=== PATIENT | female | born 1940 | race Caucasian/White ===

== ENCOUNTER 2020-07-22 16:41 | Emergency (ER) | payer MEDICARE, OTHER, SELFPAY ==
--- NOTE | ~2020-07-22 | CT_ITS ---
EXAMINATION: CT ABDOMEN AND PELVIS WITHOUT CONTRAST CLINICAL INFORMATION: Right-sided flank pain COMPARISON: None TECHNIQUE: Multidetector volumetric imaging was performed from the superior aspect of the liver through the pubic symphysis. Sagittal and coronal reformatted images were obtained on the technologist's workstation. This CT examination was performed using dose optimization techniques as appropriate, variously including the following: *Automated exposure control *Adjustment of mA and/or kV according to patient size (this includes techniques or standardized protocols for targeted exams where dose is matched to indication/reason for exam; i.e. extremities or head) *Use of iterative reconstruction technique DLP: 501 mGy-cm FINDINGS: LUNG BASES: The visualized lung bases are unremarkable. Large volume of coronary artery calcifications. There are vascular wall calcifications of thoracic aorta. There is a small hiatal hernia. LIVER, GALLBLADDER, AND BILIARY TREE: The liver is normal in size, shape, and attenuation. No focal hepatic lesion or biliary ductal dilatation is present. The gallbladder is unremarkable with no evidence of radiopaque gallstones, gallbladder wall thickening, or obvious pericholecystic inflammatory changes. PANCREAS: Unremarkable. SPLEEN: Unremarkable. ADRENAL GLANDS: There is a left adrenal mass. This measures 3.8 cm AP. This has a density measurement of 16 Hounsfield units. There is a 1 cm area of macroscopic fat measuring -35 Hounsfield units. This is consistent with a myolipoma. The right adrenal gland is normal. KIDNEYS AND URETERS: There are multiple bilateral renal cysts. Largest is in the upper pole left kidney measuring 6.5 cm. There are calcifications in the renal maribel of both kidneys that are likely vascular. There is a 3 mm nonobstructive stone at the lower pole of the right kidney. There is mild hydronephrosis of the right kidney. There is an obstructing stone in the distal right ureter measuring 3 mm. Axial image 622/770 series 4 No hydronephrosis or stone in the left kidney. BLADDER: Unremarkable. GASTROINTESTINAL TRACT: There are numerous diverticula of the sigmoid colon and descending colon. There is no diverticulitis. There is no bowel wall thickening /edema. There is no bowel obstruction. There is a moderate volume of stool in the colon. The appendix is normal . The small bowel loops are unremarkable. The stomach is normal. There is small hiatal hernia. ABDOMINAL WALL: No significant hernia is appreciated. LYMPH NODES: Normal. VASCULAR: Extensive vascular calcifications of the abdomen and the pelvis. There is no aneurysm of aorta. PELVIC VISCERA: Uterus is absent. There is no pelvic abnormality. OSSEOUS STRUCTURES: Degenerative spondylosis of the spine. No acute osseous abnormality. CT/CT abdomen pelvis wo con IMPRESSION: 1. Mild hydronephrosis of the right kidney due to an obstructing distal right ureteral stone measuring 3 mm proximal to the ureterovesical junction. 2. Nonobstructive 3 mm stone lower pole right kidney. 3. 3.8 cm left adrenal lesion which contains a 1 cm area of macroscopic fat. This is consistent with a myelolipoma. 4. Diverticulosis of the colon. No acute change of the bowel.
[2020-07-22 17:25] VITALS: BP 134/50; PULSE 90; RESP 18; TEMP 36.8; O2SAT 98; BMI 26.5
[2020-07-22 18:56] LABS: MANUAL DIFF FLAG NO
[2020-07-22 18:59] LABS: Basophils Percent Auto 0.3 % (0-2); Eosinophils Absolute Auto 0.1 X10*3/uL (0.0-0.4); Eosinophils Percent Auto 0.5 % (0-4); Hematocrit 37.5 % (37-47); Hemoglobin 12.4 g/dl (12.0-16.0); Imm Gran Abs Auto 0.06 X10*3/uL (0.00-0.03); Imm Gran Pct Auto 0.5 % (0.0-0.4); Lymphocytes Percent Auto 8.4 % (20-40); Mean Corpuscular HGB Conc 33.1 g/dl (31.0-35.0); Mean Corpuscular Hemoglobin 30.7 pg (27.0-33.0); Mean Corpuscular Volume 92.8 fL (80-98); Mean Platelet Volume 11.1 fL (9.4-12.3); Monocytes Absolute Auto 0.6 X10*3/uL (0.1-1.2); Monocytes Percent Auto 5.1 % (2-11); Neutrophils Absolute Auto 10.1 X10*3/uL (2.0-8.3); Neutrophils Percent Auto 85.2 % (45-73); Platelet Count 272 X10*3/uL (160-400); Red Blood Count 4.04 X10*6/uL (4.20-5.50); Red Cell Distribution Width 13.1 % (11.0-16.0); White Blood Count 11.9 X10*3/uL (4.8-10.8)
[2020-07-22 19:02] LABS: Glucose Urine UA NEG (NEG); Leukocyte Esterase Urine NEG (NEG); Nitrite Urine NEG (NEG); PH 5.5 (5.0-8.0); Specific Gravity - Urine 1.025 (1.005-1.025); Urine Blood 1+ (NEG); Urine Ketones NEG (NEG); Urine Protein NEG (NEG-TRACE)
[2020-07-22 19:04] LABS: Appearance Urine CLEAR; Color Urine YELLOW
[2020-07-22 19:18] LABS: Bacteria Urine 1+ /LPF; Squamous Epithelial Cell Urine 1+ /LPF
[2020-07-22 19:20] LABS: Alanine Aminotransferase 12 U/L (0-31); Albumin Level 4.4 g/dL (3.5-5.0); Alkaline Phosphatase 84 U/L (39-117); Anion Gap 15 (12-20); Aspartate Amino Transferase 14 U/L (5-31); Bilirubin Direct 0.2 mg/dL (0.0-0.5); Bilirubin Total 0.6 mg/dL (0.0-1.0); Blood Urea Nitrogen 29 mg/dL (9-16); Carbon Dioxide 25 mmol/L (22-29); Chloride 103 mmol/L (96-108); Creatinine Clr Calc Pharmacy 23.3; Estimated Glomerular Filt Rate 29; Glucose Random 157 mg/dL (60-115); Lipase 15 U/L (8-78); Potassium 4.9 mmol/L (3.3-5.1); Sodium 138 mmol/L (135-145); Total Protein 6.5 g/dL (6.5-8.0)
[2020-07-22 20:59] LABS: Glucose, Whole Blood 151 mg/dL (60-115)
--- NOTE | 2020-07-22 21:02 | ED_ITS ---
HPI - Abdominal Pain General Chief Complaint: Abdominal Pain Stated Complaint: right sided pain Time Seen by Provider: 07/22/20 21:02 Source: patient Mode of arrival: ambulatory Limitations: no limitations History of Present Illness HPI narrative: abrupt onset R flank pain pos nausea - hx of kidney stones, had Pfizer vaccine today this AM MD elicited complaint: flank pain Pertinent past history: kidney stones Onset (ago): hour(s) (started at 330pm today) Pain Consistency: constant Location: R flank Severity: severe Quality: stabbing Radiation: none Migration to: no migration Exacerbating factors: movement Relieving factors: nothing Context: history of similar episodes Associated symptoms: nausea Related Data Previous Rx's Medication Instructions Recorded ondansetron 4 mg PO Q8H PRN #20 tab 07/22/20 oxycodone 5 mg PO Q6H PRN #14 tab 07/22/20 prednisone 20 mg PO DAILY 3 Days #3 tab 07/22/20 sennosides [senna] 8.6 mg PO BEDTIME PRN #30 cap 07/22/20 tamsulosin 0.4 mg PO DAILY #5 cap 07/22/20 Allergies Allergy/AdvReac Type Severity Reaction Status Date / Time No Known Allergies Allergy Verified 07/22/20 17:24 Review of Systems Review of Systems Constitutional : No Weight loss, No Fever, No Chills ENT/Mouth : No sore throat, No Rhinorrhea Eyes: No Swelling, No Redness Cardiovascular : No Chest Pain, No SOB, NoEdema Respiratory : No Cough, No Sputum, No Wheezing Gastrointestinal : Positive Nausea, no Vomiting, no Diarrhea, positive abdominal Pain, No Hematochezia, No Melena Genitourinary : No Dysuria, No Urinary Frequency, No Hematuria, No Urgency Musculoskeletal : No joint pain, No Myalgias, No Joint Swelling, pos back pain Skin : No Skin Lesions, No rash Neuro : No Weakness, No Numbness, No Dizziness, No Headache Psych : No Anxiety/Panic, No Depression Heme/Lymph: No Bruising, No Lymphadenopathy Endocrine : No Polyuria, No Polydipsia All other systems reviewed and are negative. Physical Exam Vital Signs: Vital Signs: Last Vital Signs Temp 99.5 F 07/22/20 21:25 Pulse 78 07/22/20 21:25 Resp 20 07/22/20 21:25 BP 165/70 H 07/22/20 21:25 Pulse Ox 98 07/22/20 21:25 Body Mass Index 26.5 Appearance: Alert. Oriented X3. No acute distress. Eyes: Pupils equal, round and reactive to light. ENT: Pharynx normal. Neck: Normal inspection. Neck supple. CVS: Normal heart rate and rhythm. Pulses normal. Respiratory: No respiratory distress. Breath sounds normal. Abdomen: Soft and nontender. Back: moderate CVA ttp Skin: Skin warm and dry. Normal skin color. Normal skin turgor. Extremities: No lower extremity edema. No calf ttp Neuro: Oriented X 3. No motor deficit. No sensory deficit. Course Course Course Narrative: started on flomax and oral steroids at this time, will continue to observe baseline Cr from 05/25 1.4 pain improved will trial oral antibiotics MDM - Abdominal Pain MDM Narrative Medical decision making narrative: 80 yo female with abrupt onset R flank pain hx of renal colic, c/o nausea as well at this time will need labs, UA, CT scan for renal colic, IV morphine for pain, dispo per results and findings. Lab Data Result diagrams: 07/22/20 18:40 07/22/20 18:40 Labs: Lab Results 07/22/20 07/22/20 07/22/20 Range/Units 18:40 18:40 18:40 WBC 11.9 H (4.8-10.8) X10*3/uL RBC 4.04 L (4.20-5.50) X10*6/uL Hgb 12.4 (12.0-16.0) g/dl Hct 37.5 (37-47) % MCV 92.8 (80-98) fL MCH 30.7 (27.0-33.0) pg MCHC 33.1 (31.0-35.0) g/dl RDW 13.1 (11.0-16.0) % Plt Count 272 (160-400) X10*3/uL MPV 11.1 (9.4-12.3) fL Immature Gran % (Auto) 0.5 H (0.0-0.4) % Neut % (Auto) 85.2 H (45-73) % Lymph % (Auto) 8.4 L (20-40) % [place] % (Auto) 5.1 (2-11) % Eos % (Auto) 0.5 (0-4) % Baso % (Auto) 0.3 (0-2) % Lymph # (Auto) 1.0 L (1.2-4.9) X10*3/uL [place] # (Auto) 0.6 (0.1-1.2) X10*3/uL Eos # (Auto) 0.1 (0.0-0.4) X10*3/uL Baso # (Auto) 0.0 (0.0-0.2) X10*3/uL Abs Immat Gran (auto) 0.06 H (0.00-0.03) X10*3/uL Absolute Neuts (auto) 10.1 H (2.0-8.3) X10*3/uL Absolute Nucleated RBC 0.000 (0.0-0.012) X10*3/uL Nucleated RBC % (auto) 0.0 (0.0-0.2) /100WBC Sodium 138 (135-145) mmol/L Potassium 4.9 (3.3-5.1) mmol/L Chloride 103 (96-108) mmol/L Carbon Dioxide 25 (22-29) mmol/L Anion Gap 15 (12-20) BUN 29 H (9-16) mg/dL Creatinine 1.68 H (0.5-1.4) mg/dL Estim Creat Clear Calc 23.3 Estimated GFR 29 POC Glucose (60-115) mg/dL Random Glucose 157 H (60-115) mg/dL Calcium 10.0 (8.4-10.2) mg/dL Total Bilirubin 0.6 (0.0-1.0) mg/dL Direct Bilirubin 0.2 (0.0-0.5) mg/dL AST 14 (5-31) U/L ALT 12 (0-31) U/L Alkaline Phosphatase 84 (39-117) U/L Total Protein 6.5 (6.5-8.0) g/dL Albumin 4.4 (3.5-5.0) g/dL Lipase 15 (8-78) U/L Urine Color YELLOW Urine Appearance CLEAR Urine pH 5.5 (5.0-8.0) Ur Specific [place] 1.025 (1.005-1.025) Urine Protein NEG (NEG-TRACE) MG/DL Urine Glucose (UA) NEG (NEG) MG/DL Urine Ketones NEG (NEG) MG/DL Urine Blood 1+ H (NEG) Urine Nitrite NEG (NEG) Ur Leukocyte Esterase NEG (NEG) Urine RBC 1-4 (0) /HPF Urine WBC 1-4 (0-4) /HPF Ur Squamous Epith Cells 1+ /LPF Urine Bacteria 1+ /LPF 07/22/20 Range/Units 20:48 WBC (4.8-10.8) X10*3/uL RBC (4.20-5.50) X10*6/uL Hgb (12.0-16.0) g/dl Hct (37-47) % MCV (80-98) fL MCH (27.0-33.0) pg MCHC (31.0-35.0) g/dl RDW (11.0-16.0) % Plt Count (160-400) X10*3/uL MPV (9.4-12.3) fL Immature Gran % (Auto) (0.0-0.4) % Neut % (Auto) (45-73) % Lymph % (Auto) (20-40) % [place] % (Auto) (2-11) % Eos % (Auto) (0-4) % Baso % (Auto) (0-2) % Lymph # (Auto) (1.2-4.9) X10*3/uL [place] # (Auto) (0.1-1.2) X10*3/uL Eos # (Auto) (0.0-0.4) X10*3/uL Baso # (Auto) (0.0-0.2) X10*3/uL Abs Immat Gran (auto) (0.00-0.03) X10*3/uL Absolute Neuts (auto) (2.0-8.3) X10*3/uL Absolute Nucleated RBC (0.0-0.012) X10*3/uL Nucleated RBC % (auto) (0.0-0.2) /100WBC Sodium (135-145) mmol/L Potassium (3.3-5.1) mmol/L Chloride (96-108) mmol/L Carbon Dioxide (22-29) mmol/L Anion Gap (12-20) BUN (9-16) mg/dL Creatinine (0.5-1.4) mg/dL Estim Creat Clear Calc Estimated GFR POC Glucose 151 H (60-115) mg/dL Random Glucose (60-115) mg/dL Calcium (8.4-10.2) mg/dL Total Bilirubin (0.0-1.0) mg/dL Direct Bilirubin (0.0-0.5) mg/dL AST (5-31) U/L ALT (0-31) U/L Alkaline Phosphatase (39-117) U/L Total Protein (6.5-8.0) g/dL Albumin (3.5-5.0) g/dL Lipase (8-78) U/L Urine Color Urine Appearance Urine pH (5.0-8.0) Ur Specific [place] (1.005-1.025) Urine Protein (NEG-TRACE) MG/DL Urine Glucose (UA) (NEG) MG/DL Urine Ketones (NEG) MG/DL Urine Blood (NEG) Urine Nitrite (NEG) Ur Leukocyte Esterase (NEG) Urine RBC (0) /HPF Urine WBC (0-4) /HPF Ur Squamous Epith Cells /LPF Urine Bacteria /LPF Discharge Plan Discharge Clinical Impression: Calculus of kidney Patient Disposition: Home, Self-Care Instructions: Renal Colic (ED) Additional Instructions: return to ED for any worsening symptoms or concerns YOU NEED TO HAVE YOUR KIDNEY FUNCTION RECHECKED IN 2 DAYS, IF NO IMPROVEMENT IN PAIN PLEASE CONTACT UROLOGIST. STOP TAKING NAPROXEN 1. Mild hydronephrosis of the right kidney due to an obstructing distal right ureteral stone measuring 3 mm proximal to the ureterovesical junction. 2. Nonobstructive 3 mm stone lower pole right kidney. 3. 3.8 cm left adrenal lesion which contains a 1 cm area of macroscopic fat. This is consistent with a myelolipoma. 4. Diverticulosis of the colon. No acute change of the bowel. Prescriptions: New prednisone 20 mg tablet 20 mg PO DAILY 3 Days Qty: 3 RF: 0 ondansetron 4 mg tablet,disintegrating 4 mg PO Q8H PRN (Reason: nausea and vomiting) Qty: 20 RF: 0 senna 8.6 mg capsule 8.6 mg PO BEDTIME PRN (Reason: constipation) Qty: 30 RF: 0 oxycodone 5 mg tablet 5 mg PO Q6H PRN (Reason: pain) Qty: 14 RF: 0 tamsulosin 0.4 mg capsule 0.4 mg PO DAILY Qty: 5 RF: 0 Referrals: Kaveh Amezquita MD [Physician] - [facility] Past Medical History Attestation statement: The following information was validated with the patient. Medical History (Updated 07/22/20 @ 22:20 by Sherri Rios DO) Diabetes High cholesterol HTN (hypertension) Renal stones Surgical History (Updated 07/22/20 @ 21:07 by Sherri Rios DO) H/O: hysterectomy Social History Social History (Updated 07/22/20 @ 21:08 by Sherri Rios DO) Alcohol intake: never Smoking Status: Never smoker Use of substances other than those prescribed or required for medical reasons: No Advance Directives: No Advance Directives Information Provided: Yes
[2020-07-22 21:25] VITALS: BP 165/70; PULSE 78; RESP 20; TEMP 37.5; O2SAT 98
[2020-07-22] MEDS: 0.9 % Sodium Chloride 1,000 ML 999 ML IVCONT (21:36)
[2020-07-22] MEDS: Morphine Sulfate 4 MG/ML CARTRIDGE IVPUSH (21:38)
[2020-07-22] MEDS: ondansetron HCL 4 MG/2 ML VIAL IVPUSH (21:38)
[2020-07-22] MEDS: predniSONE 20 MG TABLET PO (22:02)
[2020-07-22] MEDS: Tamsulosin HCL 0.4 MG CAPSULE PO (22:02)
[2020-07-23] VITALS: BP 118/48; PULSE 86; TEMP 37.2; O2SAT 94
[2020-07-23] MEDS: oxyCODONE HCl Immed Release 5 MG TABLET PO (00:01)
== END 2020-07-23 00:01 | disposition home or self-care (01) ==
PROVIDERS: Emergency Provider Emergency Medicine
DX: N13.2 Hydronephrosis with renal and ureteral calculous obstruction (principal); E11.9 Type 2 diabetes mellitus without complications; I10 Essential (primary) hypertension; Z87.442 Personal history of urinary calculi
CPT/HCPCS: 36415; 74176; 80048; 80076; 81001; 81003; 82947; 83690; 85025; 96361; 96374; 96375; 99284; 99285; J2270; J2405

== ENCOUNTER → 2020-08-01 13:20 | Outpatient (BNVA) | payer MEDICARE, OTHER, SELFPAY | PROVIDERS: Visit Provider Urology | CPT/HCPCS: Q3014 ==

== ENCOUNTER 2021-01-13 11:10 | Outpatient (REF) | payer MEDICARE, OTHER, SELFPAY ==
--- NOTE | ~2021-01-13 | US_ITS ---
EXAMINATION: US RETROPERITONEAL LIMITED (RENAL ONLY) CLINICAL INFORMATION: Calculus of kidney. COMPARISON: CT abdomen and pelvis without contrast dated 07/22/2020. TECHNIQUE: Real-time imaging of the kidneys. FINDINGS: RIGHT KIDNEY: 9.4 x 6.5 x 6.3 cm (SAG x AP x TRV). The kidney is normal in size, contour, and echogenicity. Renal cortical thickness is normal. No hydronephrosis. There is an anechoic cysts seen. A upper pole cyst measures 3.7 x 3.5 of 3.1 cm, lower pole cyst measures 4.3 x 3.7 x 4.3 cm. A mid pole lateral cyst measures 1.0 x 0.7 x 1.2 cm. LEFT KIDNEY: 9 x 7 x 5.8 cm (SAG x AP x TRV). The kidney is normal in size, contour, and echogenicity. Renal cortical thickness is normal. No renal calculi or hydronephrosis. There is anechoic cyst. A upper pole cyst measures 1.0 x 0.8 x 1.0 cm. A midpole cyst measures 0.7 x 0.8 x 1.0 cm. The upper and/midpole cyst measures 0.7 x 0.8 x 1.0 cm. A prominent left adrenal gland is seen measuring 3.5 x 2.9 x 3.6 cm adjacent to the upper pole. US/US renal BI IMPRESSION: Bilateral renal cysts. No echogenic renal calculi or hydronephrosis. Prominent left adrenal gland measuring 3.5 x 2.9 x 3.6 cm.
== END 2021-01-13 11:11 | disposition home or self-care (01) ==
LOC: HO.US 11:10
PROVIDERS: PCP Internal Medicine; Visit Provider Urology
DX: N20.0 Calculus of kidney (principal)
CPT/HCPCS: 76775

== ENCOUNTER 2021-05-20 10:36 | Outpatient (REF) | payer MEDICARE, OTHER, SELFPAY ==
--- NOTE | ~2021-05-20 | XR_ITS ---
EXAMINATION: XR LUMBOSACRAL SPINE CLINICAL INFORMATION: Low back and right lower extremity pain. COMPARISON: None TECHNIQUE: Three views of the lumbosacral spine. FINDINGS: There are 5 nonrib-bearing lumbar vertebra. No acute fracture or spondylolysis is identified. There is severe narrowing of the L2-L3 disc space with grade 1 spondylolisthesis. The remainder of the disc spaces appear unremarkable. There is facet arthropathy seen L4-S1. Prominent vascular calcifications are noted. No significant sacral iliac joint abnormality is seen. Pedicles are intact. There is also noted to be degenerative disc disease seen within the lower thoracic spine. XR/XR lumbar spine 2-3V IMPRESSION: Severe degenerative disc disease seen at the L2-L3 level. Bilateral facet arthropathy L4-S1.
== END 2021-05-20 10:37 | disposition home or self-care (01) ==
LOC: HO.XRAY 10:36
PROVIDERS: PCP Internal Medicine; Visit Provider Chiropractor
DX: M54.50 Low back pain, unspecified (principal); M79.604 Pain in right leg
CPT/HCPCS: 72100

== ENCOUNTER → 2021-06-22 09:18 | Outpatient (BNVA) | payer MEDICARE, OTHER, SELFPAY | PROVIDERS: PCP Internal Medicine | DX: Z13.89 Encounter for screening for other disorder (principal) | CPT/HCPCS: 99212 ==

== ENCOUNTER 2021-12-16 07:35 | Outpatient (REF) | payer MEDICARE, OTHER, SELFPAY ==
--- NOTE | ~2021-12-16 | US_ITS ---
EXAMINATION: US RETROPERITONEAL LIMITED (RENAL ONLY) CLINICAL INFORMATION: Calculus of kidney. COMPARISON: Renal ultrasound 01/13/2021. CT abdomen and pelvis 07/22/2020. TECHNIQUE: Real-time imaging of the kidneys. FINDINGS: RIGHT KIDNEY: 10.6 x 6.7 x 4.9 cm (SAG x AP x TRV). The kidney is normal in size, contour, and echogenicity. Renal cortical thickness is normal. No hydronephrosis. There are several anechoic cysts. 1. Upper pole cyst measures 4.0 2.9 x 3.0 cm. 2. [place] point cyst measures 4.6 x 4.4 x 4.3 cm. 3. Lower pole cyst measures 1.1 x 0.4 x 1.0 cm. There are echogenic stones without caliectasis. 1. Lower pole stone measuring 0.7 x 0.3 x 0.4 cm. 2. Mid pole stone measures 0.4 x 0.4 x 0.5 cm. LEFT KIDNEY: 9.7 x 4.7 x 5.4 cm (SAG x AP x TRV). The kidney is normal in size, contour, and echogenicity. Renal cortical thickness is normal. No renal calculi or hydronephrosis. There are several anechoic cysts. 1. Upper pole cyst measures 0.8 x 0.7 x 8.8 cm. 2. Upper pole cyst measuring 0.9 x 0.7 x 1.2 cm. 3. Midpole cyst measures 0.6 x 0.8 x 1.3 cm. Large left adrenal gland is noted measuring 3.4 x 3.3 x 3.1 cm. US/US renal BI IMPRESSION: There are bilateral renal cysts. There is nonobstructive echogenic renal calculi right kidney. There is no caliectasis or hydronephrosis in either kidney. There is a known left adrenal gland mass measuring 3.4 cm..
== END 2021-12-16 07:36 | disposition home or self-care (01) ==
LOC: HO.US 07:35
DX: N20.0 Calculus of kidney (principal)
CPT/HCPCS: 76775

== ENCOUNTER → 2022-01-19 09:33 | Outpatient (BNVA) | payer MEDICARE, OTHER, SELFPAY | PROVIDERS: PCP Internal Medicine | DX: N20.0 Calculus of kidney (principal); E11.9 Type 2 diabetes mellitus without complications | CPT/HCPCS: 99212 ==

== ENCOUNTER 2022-02-25 06:49 | Outpatient (REF) | payer MEDICARE, OTHER, SELFPAY ==
[2022-02-25 08:00] LABS: Estimated Average Glucose 157 mg/dL; Hemoglobin A1c % 7.1 %
[2022-02-25 08:22] LABS: Alanine Aminotransferase 19 U/L (0-31); Anion Gap 17 (12-20); Aspartate Amino Transferase 19 U/L (5-31); Blood Urea Nitrogen 31 mg/dL (9-16); Carbon Dioxide 25 mmol/L (22-29); Chloride 103 mmol/L (96-108); Cholesterol 139 mg/dL; Estimated Glomerular Filt Rate 37; HDL Cholesterol 37 mg/dL; LDL Cholesterol Calculated 64 mg/dl; Potassium 5.2 mmol/L (3.3-5.1); Sodium 140 mmol/L (135-145); Triglycerides 192 mg/dL; Uric Acid 6.5 mg/dL (2.4-5.7)
[2022-02-25 15:14] LABS: Creatinine Urine 132.96 mg/dL; Microalbum/Creatinine Ratio Ur 3.7 ug/mg cr
== END 2022-02-25 06:50 | disposition home or self-care (01) ==
LOC: HO.LAB 06:49
PROVIDERS: PCP Internal Medicine; Visit Provider Internal Medicine
DX: I12.9 Hypertensive chronic kidney disease with stage 1 through stage 4 chronic kidney disease, or unspecified chronic kidney disease (principal); E11.22 Type 2 diabetes mellitus with diabetic chronic kidney disease; N18.32 Chronic kidney disease, stage 3b; E78.00 Pure hypercholesterolemia, unspecified; M1A.0710 Idiopathic chronic gout, right ankle and foot, without tophus (tophi)
CPT/HCPCS: 36415; 80051; 80061; 81003; 82043; 82565; 83036; 84450; 84460; 84520; 84550

== ENCOUNTER 2023-01-17 07:09 | Outpatient (REF) | payer MEDICARE, OTHER, SELFPAY ==
--- NOTE | ~2023-01-17 | US_ITS ---
EXAMINATION: US RETROPERITONEAL LIMITED (RENAL ONLY) CLINICAL INFORMATION: Calculus of kidney. COMPARISON: Renal ultrasound 12/16/2021 and 01/13/2021. CT abdomen and pelvis 07/22/2020. TECHNIQUE: Real-time imaging of the kidneys. FINDINGS: RIGHT KIDNEY: 10.3 x 4.8 x 4.7 cm (SAG x AP x TRV). The kidney is normal in size, contour, and echogenicity. Renal cortical thickness is normal. No hydronephrosis. At the interpolar aspect, a 3 mm nonobstructing calculus is seen. At the lower pole, a 3 mm nonobstructing calculus is seen. At the upper pole, a 3.9 cm benign, simple cyst is seen. At the interpolar aspect, a 1.1 cm benign, simple cyst is seen. At the lower pole, a 5.0 cm benign, simple cyst is seen. These require no imaging follow-up. LEFT KIDNEY: 8.5 x 4.0 x 4.5 cm (SAG x AP x TRV). The kidney is normal in size, contour, and echogenicity. Renal cortical thickness is normal. No renal calculi or hydronephrosis. At the upper pole, 1.3 cm and 8.7 cm benign, simple cyst are seen. These require no imaging follow-up. ADDITIONAL FINDINGS: A 3.6 x 3.1 x 4.4 cm previously noted left adrenal myelolipoma is redemonstrated. US/US renal BI IMPRESSION: 1. There are nonobstructing right renal calculi. No left renal calculus is seen. No hydronephrosis is noted bilaterally. 2. 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
== END 2023-01-17 07:10 | disposition home or self-care (01) ==
LOC: HO.US 07:09
PROVIDERS: Visit Provider Nurse Practitioner Family
DX: N20.0 Calculus of kidney (principal)
CPT/HCPCS: 76775

== ENCOUNTER 2023-02-04 08:41 | Outpatient (AMB) | payer MEDICARE, OTHER, SELFPAY ==
--- NOTE | 2023-02-04 08:44 | A.OFFVIS_ITS ---
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 Accompanied by: Self / Same As Patient Allergies No Known Allergies Allergy (Verified 02/04/23 09:56) Medication List - Last Reconciled 02/04/23 by REBECCA HigginsP- allopurinol 100 mg PO DAILY aspirin 81 mg PO DAILY atorvastatin 10 mg PO DAILY cholecalciferol (vitamin D3) 25 mcg PO DAILY L.acid-B.animalis,bifid, 50 billion cell ([facility] Probiotic) caps PO lisinopril 10 mg PO DAILY loratadine (Allergy Relief (loratadine)) 10 mg PO DAILY metformin 850 mg PO DAILY pyridoxine (vitamin B6) 50 mg PO DAILY 30 days HPI HPI Comments History of Present Illness Details Dede is a very pleasent 82-year-old female patient of Dr. Moran. She has a past medical history of diabetes, hypercholesteremia, hypertension, nephrolithiasis, and renal cyst. She presents to the office today for follow-up of her her nephrolithiasis and renal cyst. Recent renal imaging results reviewed with the patient today. Right kidney with no hydronephrosis. At the interpolar aspect a 3 mm nonobstructing calculus is seen. At the lower pole a 3 mm nonobstructing calculus is seen. At the upper pole, a 3.9 cm benign, simple cyst is seen. At the interpolar aspect, a 1.1 cm benign, simple cyst is seen. At the lower pole, a 5.0 cm benign, simple cyst is seen. These require no imaging follow-up per radiology report. Left kidney with no calculi or hydronephrosis. At the upper pole, 1.3 cm and 8.7 cm benign, simple cyst are seen. These require no imaging follow-up per radiology report. When asked patient reports to be doing and feeling well. She reports continuing to drink plenty of water daily and compliance with vitamin B6 as prescribed. She denies any urinary issues or concerns at this time. She reports to be happy with current voiding parameters. In office urinalysis results reviewed with the patient today. When asked she denies urinary urgency, urinary frequency, incontinence, nocturia, hematuria, dysuria, foul smelling urine, changes to urinary stream, flank pain, fever, and or chills. PFSH Medical History Diabetes High cholesterol HTN (hypertension) Renal stones Surgical History H/O: hysterectomy Social History Alcohol intake: never Review of Systems Const Reports as per HPI Eyes Reports no additional complaints ENT Reports no additional complaints Card Reports as per HPI Resp Reports no additional complaints GI Reports as per HPI Reports as per HPI Musc Reports no additional complaints Neuro Reports no additional complaints Psych Reports no additional complaints Endo Reports no additional complaints Marcio/Lymph Reports no additional complaints Aller/Immun Reports no additional complaints Physical Exam Const General: cooperative, healthy appearing, comfortable, no acute distress, well developed, alert and awake Orientation/consciousness: patient oriented x3 Limitations: no limitations HEENT Head: Yes normal to inspection, Yes normocephalic and Yes atraumatic Ears: hearing grossly normal bilaterally Eyes General: appearance normal, both eyes and all related structures Neck Neck: Yes normal visual inspection and Yes trachea midline Chest Chest palpation & inspection: normal inspection of the chest Resp Effort & Inspection: normal respiratory effort and able to speak in complete sentences Cardio Rate: regular rate GI Inspection: Yes normal to inspection General: Yes no CVA tenderness Back/Spine/Pelvis Back: no CVA tenderness Skin General skin exam: no rashes or lesions noted Neuro General: patient oriented x3 Extrem General: Yes normal to inspection Psych Appearance: grossly normal and well kempt Mental Status: mental status grossly normal Speech and movement: Normal speech and movement present and Clear speech present Affect: normal affect Attitude: cooperative Thought process: Normal thought process present Thought content: Normal thought content present Insight: Good insight present (Psych) Judgement: Good judgement present (Psych) Results AMB Urinalysis, Automated UA Leukoctes 0 Maura/uL Last Edit by Roberto Brooks on 02/04/23 09:01 UA Nitrite Negative Last Edit by Roberto Brooks on 02/04/23 09:01 UA Urobilinogen 0.2 mg/dL Last Edit by Roberto Brooks on 02/04/23 09:01 UA Protein 0 mg/dL Last Edit by Roberto Brooks on 02/04/23 09:01 UA pH 6.0 Last Edit by Roberto Brooks on 02/04/23 09:01 UA Blood 0 Isidoro/uL Last Edit by Roberto Brooks on 02/04/23 09:01 UA Specific [place] 1.020 Last Edit by Roberto Brooks on 02/04/23 09:01 UA Ketone Negative Last Edit by Roberto Brooks on 02/04/23 09:01 UA Bilirubin 0 mg/dL Last Edit by Roberto Brooks on 02/04/23 09:01 UA Glucose 100 mg/dL Last Edit by Roberto Brooks on 02/04/23 09:01 Results Reviewed Results Reviewed: Laboratory Last Values Urine pH (Auto) 6.0 02/04/23 08:59 Specific [place] (Auto) 1.020 02/04/23 08:59 Urine Protein (Auto) 0 mg/dL 02/04/23 08:59 Glucose (UA)(Auto) 100 mg/dL 02/04/23 08:59 Urine Ketones (Auto) Negative 02/04/23 08:59 Urine Blood (Auto) 0 Isidoro/uL 02/04/23 08:59 Urine Nitrite (Auto) Negative 02/04/23 08:59 Urine Bilirubin (Auto) 0 mg/dL 02/04/23 08:59 Urine Urobilinogen (Auto) 0.2 mg/dL 02/04/23 08:59 Leukocyte Esterase (Auto) 0 Maura/uL 02/04/23 08:59 Date of Service: 01/17/23 EXAMINATION: US RETROPERITONEAL LIMITED (RENAL ONLY) FINDINGS: RIGHT KIDNEY: 10.3 x 4.8 x 4.7 cm (SAG x AP x TRV). The kidney is normal in size, contour, and echogenicity. Renal cortical thickness is normal. No hydronephrosis. At the interpolar aspect, a 3 mm nonobstructing calculus is seen. At the lower pole, a 3 mm nonobstructing calculus is seen. At the upper pole, a 3.9 cm benign, simple cyst is seen. At the interpolar aspect, a 1.1 cm benign, simple cyst is seen. At the lower pole, a 5.0 cm benign, simple cyst is seen. These require no imaging follow-up. LEFT KIDNEY: 8.5 x 4.0 x 4.5 cm (SAG x AP x TRV). The kidney is normal in size, contour, and echogenicity. Renal cortical thickness is normal. No renal calculi or hydronephrosis. At the upper pole, 1.3 cm and 8.7 cm benign, simple cyst are seen. These require no imaging follow-up. ADDITIONAL FINDINGS: A 3.6 x 3.1 x 4.4 cm previously noted left adrenal myelolipoma is redemonstrated. IMPRESSION: ? 1. There are nonobstructing right renal calculi. No left renal calculus is seen. No hydronephrosis is noted bilaterally. ? 2. 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 Assessment & Plan Assessment & Plan (1) Nephrolithiasis: Code(s): N20.0 - Calculus of kidney (2) Renal cyst: Code(s): N28.1 - Cyst of kidney, acquired Plan In office urinalysis results reviewed with the patient today. Recent renal imaging results reviewed with the patient today; as noted above. Patient denies any bothersome urinary issues or concerns at this time. Continue vitamin B6 as prescribed Discussed, educated, and encouraged to continue drinking plenty of water daily. Renal ultrasound in 1 year. Follow-up in 1 year with imaging to be completed prior; or sooner with any issues, concerns, and or questions. Orders: Orders US renal BI 364 Days N20.0 - Calculus of kidney AMB Urinalysis Automated Today Z13.9 - Encounter for screening, unspecified Patient Instructions: The patient had an opportunity to ask questions regarding the treatment plan. All questions were answered. Physical exam, labs, and imaging were discussed and reviewed in detail. As well as risks, benefits, and discussion of treatment choices. No major barriers to understanding were identified. The patient expressed understanding and agreement with the above treatment plan. The patient was made aware they should contact our office by phone for worsening of their current condition, the appearance of new symptoms, or with any questions or concerns. Compliance is encouraged with any medications and follow up testing that is ordered. It is a privilege to be allowed the opportunity to participate in? your urological care.? Again, if you have any questions or concerns If you have any questions or concerns please do not hesitate to contact me. The office is [phone]. This note is constructed using voice recognition software. While every effort has been made to ensure accuracy sales and service change leader errors may have been included. Yours sincerely, KATIE Higgins Coding Level of Care Code Est Pt Level 3 (56428) Diagnoses Nephrolithiasis N20.0 Renal cyst N28.1
== END 2023-02-04 09:25 | disposition home or self-care (01) ==
PROVIDERS: PCP Internal Medicine; Visit Provider Nurse Practitioner Family
DX: N20.0 Calculus of kidney (principal); N28.1 Cyst of kidney, acquired; Z13.9 Encounter for screening, unspecified
CPT/HCPCS: 99213

== ENCOUNTER → 2023-02-04 08:41 | Outpatient (BNVA) | payer MEDICARE, OTHER, SELFPAY | PROVIDERS: Visit Provider Nurse Practitioner Family | DX: N20.0 Calculus of kidney (principal); N28.1 Cyst of kidney, acquired | CPT/HCPCS: 81003; 99212 ==

== ENCOUNTER 2023-08-15 07:03 | Outpatient (REF) | payer MEDICARE, OTHER, SELFPAY ==
--- NOTE | ~2023-08-15 | FL_ITS ---
EXAMINATION: XR FLUOROSCOPY UPPER GI WITH AIR CLINICAL INFORMATION: Dysphagia. Reflux COMPARISON: None TECHNIQUE: Fluoroscopic air contrast upper GI examination was performed utilizing standard techniques with thin and thick barium and effervescent granules. Numerous spot images were obtained. FINDINGS: Lateral cine images of the oropharynx and hypopharynx demonstrate normal swallow mechanism with normal epiglottic inversion and soft palate elevation. No tracheal penetration, glottic or subglottic aspiration identified. No nasopharyngeal reflux present. Hypopharyngeal structures appear normal without evidence of mass or diverticulum. There was no significant cricopharyngeal achalasia. Dual and single contrast images of the esophagus demonstrate normal caliber, contour, and mucosal pattern. No evidence of stricture, mass, or ulcerations identified. There is to and fro motion of the barium column with mildly disorganized esophageal peristalsis present. A nonobstructing Schatzki's ring is present (RF 1-6, image 16 of 18). A moderate-sized type I hiatal hernia is present. Significant gastroesophageal reflux is seen at the thoracic inlet. Dual contrast and single contrast images of the stomach demonstrated a normal contour. There are multiple small areas of contrast pooling in the fundus, body, and antrum of the stomach that may represent small superficial apthous ulcers. There is thickening of the areae gastricae. No masses are seen. Contrast freely passed into the gastric antrum and duodenal bulb without delay. Single and air-contrast images of the duodenal bulb demonstrate no abnormality. The duodenal sweep has a normal appearance, course, and mucosal fold appearance. No malrotation. The imaged proximal jejunum has a normal fold pattern and caliber. There is heavy calcification of the aorta. There are heavy coronary calcifications. FLUOROSCOPY TIME: 5 minutes 6 seconds Number of Spot Images: 18 Number of Cine: 9 DOSE AREA PRODUCT: 2564 uGy-m2 (microgray-meter squared) FL/FL barium swallow with air IMPRESSION: 1. Mild esophageal dysmotility. 2. Moderate-sized type I hiatal hernia. 3. Nonobstructing Schatzki's ring. 4. Significant gastroesophageal reflux. 5. Multiple small areas of contrast pooling in the fundus body and antrum the stomach that may represent small superficial ulcers. Findings suggesting erosive gastritis. Recommend correlation with EGD. This procedure was performed by Anthony Herring PA-C, and supervised by Dr. Kinney
== END 2023-08-15 07:04 | disposition home or self-care (01) ==
LOC: HO.XRAY 07:03
PROVIDERS: PCP Internal Medicine; Visit Provider Internal Medicine
DX: R13.13 Dysphagia, pharyngeal phase (principal)
CPT/HCPCS: 74221

== ENCOUNTER → 2023-08-15 07:05 | Outpatient (BNV) | payer MEDICARE, OTHER, SELFPAY | PROVIDERS: PCP Internal Medicine; Visit Provider Physician Assistant Surgical | DX: R13.10 Dysphagia, unspecified (principal); K21.9 Gastro-esophageal reflux disease without esophagitis | CPT/HCPCS: 74221 ==

== ENCOUNTER 2024-01-30 08:30 | Outpatient (REF) | payer MEDICARE, OTHER, SELFPAY ==
--- NOTE | ~2024-01-30 | US_ITS ---
EXAMINATION: US RETROPERITONEAL COMPLETE (RENAL) CLINICAL INFORMATION: Calculus of kidney. COMPARISON: 01/17/2023 TECHNIQUE: Real-time imaging of the kidneys and bladder. Limited visualization due to bowel gas. FINDINGS: RIGHT KIDNEY: 12.1 x 6.7 x 5.2 cm (SAG x AP x TRV). No hydronephrosis. Limited visualization. 0.3 cm lower pole calculus. Tiny echogenic lower pole possible additional calculus. 5.1 cm lower pole, 4.4 cm upper pole and 1.3 cm lower pole cysts with benign features. There is no indication for additional imaging at this time. LEFT KIDNEY: 8.9 x 4.0 x 4.7 cm (SAG x AP x TRV). No hydronephrosis. Limited visualization. 0.2 cm midpole calculus. 6.9 cm upper pole cyst with septation, previously 8.7 cm. 1.1 cm upper pole cyst with benign features. There is no indication for additional imaging at this time. ADDITIONAL FINDINGS: 3.7 x 3.0 x 3.2 cm left upper quadrant mass identified superior to the left kidney, previously 3.6 x 3.1 x 4.4 cm on 01/17/2023 ultrasound. US/US renal BI IMPRESSION: 1. Bilateral renal calculi. No hydronephrosis. 2. Left upper quadrant mass identified superior to the left kidney, previously 3.6 x 3.1 x 4.4 cm on 01/17/2023 ultrasound. This may possibly correlate with the 3.8 cm left adrenal lesion felt to represent a myolipoma identified on CT abdomen and pelvis of 07/22/2020. Electronically signed by: Carli Chan MD 02/08/2024 10:28 AM EDT
== END 2024-01-30 08:31 | disposition home or self-care (01) ==
LOC: HO.US 08:30
PROVIDERS: PCP Internal Medicine; Visit Provider Nurse Practitioner Family
DX: N20.0 Calculus of kidney (principal)
CPT/HCPCS: 76775

== ENCOUNTER 2024-02-07 08:09 | Outpatient (REF) | payer MEDICARE, OTHER, SELFPAY ==
[2024-02-07 17:08] LABS: Urine Cytology See Pathology rpt
== END 2024-02-07 08:10 | disposition home or self-care (01) ==
LOC: HO.LNP 08:09
PROVIDERS: PCP Internal Medicine; Visit Provider Nurse Practitioner Family
DX: R39.9 Unspecified symptoms and signs involving the genitourinary system (principal); Z13.9 Encounter for screening, unspecified; N20.0 Calculus of kidney; N28.1 Cyst of kidney, acquired; R39.15 Urgency of urination; R35.0 Frequency of micturition
CPT/HCPCS: 81003; 88112; 99212

== ENCOUNTER 2024-02-07 08:09 | Outpatient (AMB) | payer MEDICARE, OTHER, SELFPAY ==
--- NOTE | 2024-02-07 08:15 | A.OFFVIS_ITS ---
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 Accompanied by: Self / Same As Patient Allergies No Known Allergies Allergy (Verified 02/07/24 09:17) Medication List - Last Reconciled 02/07/24 by REINA Higgins- allopurinol 100 mg PO DAILY aspirin 81 mg PO DAILY atorvastatin 10 mg PO DAILY cholecalciferol (vitamin D3) 25 mcg PO DAILY L.acid-B.animalis,bifid, 50 billion cell (Fortify [place] Probiotic) caps PO lisinopril 10 mg PO DAILY loratadine (Allergy Relief (loratadine)) 10 mg PO DAILY metformin 850 mg PO DAILY pyridoxine (vitamin B6) 50 mg PO DAILY 30 days HPI Comments Details: Dede is a very pleasant 83-year-old female patient of Dr. Moran. She has a past medical history of diabetes, hypercholesteremia, hypertension, nephrolithiasis, and renal cyst. She presents to the office today for follow-up of her her nephrolithiasis and renal cyst. Recent renal imaging results reviewed with the patient today. Bilateral kidneys with no hydronephrosis. Right-sided 0.3 cm lower pole calculus. Tiny echogenic lower pole possible additional calculus. 5.1 cm lower pole, 4.4 cm upper pole and 1.3 cm lower pole cysts with benign features. There is no indication for additional imaging at this time per radiology report. Left kidney with 0.2 mid pole calculus. 6.9 cm upper pole cyst with septation, previously 8.7 cm. 1.1 cm upper pole cyst with benign features. There is no indication for additional imaging at this time per radiology report. She discusses having followed-up with her PCP 3-4 months ago for episodes of urinary urgency and frequency she had been experiencing at which time she was prescribed an antibiotic for a potential urinary tract infection however had stopped medication as she received a call that she did not have a urinary tract infection. She reports continuing to feel episodes of urinary frequency and urgency however feels symptoms improve when she increases her water consumption. In office urinalysis results reviewed with the patient today 1+ leukocyte 2+ microscopic hematuria. We discussed at length potential causes of urinary urgency and frequency. She otherwise denies incontinence, nocturia, hematuria, dysuria, foul smelling urine, changes to urinary stream, flank pain, fever, and or chills. Discussed lifestyle modifications to assist with lower urinary tract symptoms. We discussed renal cysts and nephrolithiasis as well. When asked she reports compliance with allopurinol and vitamin B6 as prescribed. She otherwise offers no other issues or concerns at this time. [facility] Medical History Renal stones High cholesterol HTN (hypertension) Diabetes Surgical History H/O: hysterectomy Social History Alcohol intake: never Review of Systems Const Reports as per HPI Eyes Reports no additional complaints ENT Reports no additional complaints Card Reports as per HPI Resp Reports no additional complaints GI Reports as per HPI Reports as per HPI Musc Reports no additional complaints Neuro Reports no additional complaints Psych Reports no additional complaints Endo Reports no additional complaints Marcio/Lymph Reports no additional complaints Aller/Immun Reports no additional complaints Physical Exam Const General: cooperative, healthy appearing, comfortable, no acute distress, well developed, alert and awake Orientation/consciousness: patient oriented x3 Limitations: no limitations HEENT Head: Yes normal to inspection, Yes normocephalic and Yes atraumatic Ears: hearing grossly normal bilaterally Eyes General: appearance normal, both eyes and all related structures Neck Neck: Yes normal visual inspection and Yes trachea midline Chest Chest palpation & inspection: normal inspection of the chest Resp Effort & Inspection: normal respiratory effort and able to speak in complete sentences Cardio Rate: regular rate GI Inspection: Yes normal to inspection General: Yes no CVA tenderness Back/Spine/Pelvis Back: no CVA tenderness Skin General skin exam: no rashes or lesions noted Neuro General: patient oriented x3 Extrem General: Yes normal to inspection Psych Appearance: grossly normal and well kempt Mental Status: mental status grossly normal Speech and movement: Normal speech and movement present and Clear speech present Affect: normal affect Attitude: cooperative Thought process: Normal thought process present Thought content: Normal thought content present Insight: Fair insight present (Psych) Judgement: Fair judgement present (Psych) Results AMB Urinalysis, Automated UA Leukoctes 70 Maura/uL Last Edit by Roberto Brooks on 02/07/24 08:53 UA Nitrite Last Edit by Roberto Brooks on 02/07/24 08:53 UA Urobilinogen 0.2 mg/dL Last Edit by Roberto Brooks on 02/07/24 08:53 UA Protein 15 mg/dL Last Edit by Roberto Brooks on 02/07/24 08:53 UA pH 6.0 Last Edit by Roberto Brooks on 02/07/24 08:53 UA Blood 80 Isidoro/uL Last Edit by Roberto Brooks on 02/07/24 08:53 UA Specific [place] 1.015 Last Edit by Roberto Brooks on 02/07/24 08:53 UA Ketone Negative Last Edit by Roberto Brooks on 02/07/24 08:53 UA Bilirubin 0 mg/dL Last Edit by Roberto Brooks on 02/07/24 08:53 UA Glucose 0 mg/dL Last Edit by Roberto Brooks on 02/07/24 08:53 Results Reviewed Results Reviewed: Laboratory Last Values Urine pH (Auto) 6.0 02/07/24 08:23 Specific [place] (Auto) 1.015 02/07/24 08:23 Urine Protein (Auto) 15 mg/dL 02/07/24 08:23 Glucose (UA)(Auto) 0 mg/dL 02/07/24 08:23 Urine Ketones (Auto) Negative 02/07/24 08:23 Urine Blood (Auto) 80 Isidoro/uL 02/07/24 08:23 Urine Bilirubin (Auto) 0 mg/dL 02/07/24 08:23 Urine Urobilinogen (Auto) 0.2 mg/dL 02/07/24 08:23 Leukocyte Esterase (Auto) 70 Maura/uL 02/07/24 08:23 Date of Service: 01/30/24 US RETROPERITONEAL COMPLETE (RENAL) FINDINGS: RIGHT KIDNEY: 12.1 x 6.7 x 5.2 cm (SAG x AP x TRV). No hydronephrosis. Limited visualization. 0.3 cm lower pole calculus. Tiny echogenic lower pole possible additional calculus. 5.1 cm lower pole, 4.4 cm upper pole and 1.3 cm lower pole cysts with benign features. There is no indication for additional imaging at this time. LEFT KIDNEY: 8.9 x 4.0 x 4.7 cm (SAG x AP x TRV). No hydronephrosis. Limited visualization. 0.2 cm midpole calculus. 6.9 cm upper pole cyst with septation, previously 8.7 cm. 1.1 cm upper pole cyst with benign features. There is no indication for additional imaging at this time. ADDITIONAL FINDINGS: 3.7 x 3.0 x 3.2 cm left upper quadrant mass identified superior to the left kidney, previously 3.6 x 3.1 x 4.4 cm on 01/17/2023 ultrasound. IMPRESSION: 1. Bilateral renal calculi. No hydronephrosis. 2. Left upper quadrant mass identified superior to the left kidney, previously 3.6 x 3.1 x 4.4 cm on 01/17/2023 ultrasound. This may possibly correlate with the 3.8 cm left adrenal lesion felt to represent a myolipoma identified on CT abdomen and pelvis of 07/22/2020 Assessment & Plan Assessment & Plan (1) Renal stones: Code(s): N20.0 - Calculus of kidney Category: Medical (2) Renal cyst: Code(s): N28.1 - Cyst of kidney, acquired Category: Medical (3) Lower urinary tract symptoms: Code(s): R39.9 - Unspecified symptoms and signs involving the genitourinary system Category: Medical (4) Urinary urgency: Code(s): R39.15 - Urgency of urination Category: Medical (5) Urinary frequency: Code(s): R35.0 - Frequency of micturition Category: Medical Plan In office urinalysis results reviewed with the patient today; as noted above; will send for urine cytology. Recent renal imaging results reviewed with the patient today; as noted above. Discussed at length renal cyst as well as nephrolithiasis. Discussed potential causes for urinary urgency and frequency patient has been experiencing. Discussed lifestyle modifications to assist with lower urinary tract symptoms. Discuss trial of Estrace cream and or OAB medication Patient will continue with lifestyle modifications at this time. Discussed bladder triggers/irritants. Discussed, stressed, and educated on the importance of adequate hydration in relation to lower urinary tract symptoms as well as nephrolithiasis and overall health and well being. Will obtain renal ultrasound in 1 year. Follow-up in 1 year with imaging to be completed prior; or sooner with any issues, concerns, and or questions. Orders: Orders US renal BI 1 Year N20.0 - Calculus of kidney, N28.1 - Cyst of kidney, acquired AMB Urinalysis Automated 02/07/24 Z13.9 - Encounter for screening, unspecified Urine Cytology 02/07/24 R39.9 - Unspecified symptoms and signs involving the genitourinary system, Z13.9 - Encounter for screening, unspecified Patient Instructions: The patient had an opportunity to ask questions regarding the treatment plan. All questions were answered. Physical exam, labs, and imaging were discussed and reviewed in detail. As well as risks, benefits, and discussion of treatment choices. No major barriers to understanding were identified. The patient expressed understanding and agreement with the above treatment plan. The patient was made aware they should contact our office by phone for worsening of their current condition, the appearance of new symptoms, or with any questions or concerns. Compliance is encouraged with any medications and follow up testing that is ordered. It is a privilege to be allowed the opportunity to participate in? your urological care.? Again, if you have any questions or concerns If you have any questions or concerns please do not hesitate to contact me. The office is [phone]. This note is constructed using voice recognition software. While every effort has been made to ensure accuracy certified rehabilitation counselor errors may have been included. Yours sincerely, KATIE Higgins Coding Level of Care Code Est Pt Level 4 (22855) Complex EM visit Add On G2211 Diagnoses Renal stones N20.0 Renal cyst N28.1 Lower urinary tract symptoms R39.9 Urinary urgency R39.15 Urinary frequency R35.0 Time Spent (min) 25
== END 2024-02-07 09:15 | disposition home or self-care (01) ==
PROVIDERS: PCP Internal Medicine; Visit Provider Nurse Practitioner Family
DX: N20.0 Calculus of kidney (principal); N28.1 Cyst of kidney, acquired; R39.9 Unspecified symptoms and signs involving the genitourinary system; R39.15 Urgency of urination; R35.0 Frequency of micturition
CPT/HCPCS: 99214; G2211

== ENCOUNTER 2024-03-12 09:16 | Outpatient (REF) | payer MEDICARE, OTHER, SELFPAY ==
--- NOTE | ~2024-03-12 | XR_ITS ---
EXAMINATION: XR HIP, RIGHT XR LUMBAR SPINE CLINICAL INFORMATION: Right hip osteoarthritis, sacroiliitis. COMPARISON: None available. TECHNIQUE: 5 views of the lumbosacral spine as well as AP view of the pelvis and 2 views of the right hip. FINDINGS: LUMBAR SPINE: Diffuse demineralization. Levoscoliosis of the lumbar spine. Extensive atherosclerotic aortoiliac calcifications. Facet arthritis in the lower lumbar spine. Multilevel lumbar spondylosis with marked loss of disc space height and hypertrophic change at L2-L3. Grade 1 retrolisthesis of L3 on L4 with moderate loss of disc space height. Minimal grade 1 anterolisthesis of L4 on L5. PELVIS: Moderate degenerative changes in the bilateral sacroiliac joints with joint space narrowing and hypertrophic change. Diffuse demineralization. RIGHT HIP: Coyajtax-ud-bqznfg degenerative changes with joint space narrowing and hypertrophic change. Extensive vascular calcifications. Diffuse demineralization. Alignment maintained. Moderate degenerative changes on single AP view of the left hip. XR/XR lumbar spine 4V min IMPRESSION: 1. Multilevel lumbar spondylosis most notable at L2-L3. 2. Moderate degenerative changes bilateral sacroiliac joints. 3. Bkdjlkdi-jl-qdnssw degenerative changes in the right hip. This study was presented today, March 12, 2024, for interpretation. Stat results provided at this time as requested by referring provider. Electronically signed by: Carli Chan MD 03/12/2024 10:53 AM EDT
--- NOTE | ~2024-03-12 | XR_ITS ---
EXAMINATION: XR HIP, RIGHT XR LUMBAR SPINE CLINICAL INFORMATION: Right hip osteoarthritis, sacroiliitis. COMPARISON: None available. TECHNIQUE: 5 views of the lumbosacral spine as well as AP view of the pelvis and 2 views of the right hip. FINDINGS: LUMBAR SPINE: Diffuse demineralization. Levoscoliosis of the lumbar spine. Extensive atherosclerotic aortoiliac calcifications. Facet arthritis in the lower lumbar spine. Multilevel lumbar spondylosis with marked loss of disc space height and hypertrophic change at L2-L3. Grade 1 retrolisthesis of L3 on L4 with moderate loss of disc space height. Minimal grade 1 anterolisthesis of L4 on L5. PELVIS: Moderate degenerative changes in the bilateral sacroiliac joints with joint space narrowing and hypertrophic change. Diffuse demineralization. RIGHT HIP: Gkdmwudi-wo-rhdwzq degenerative changes with joint space narrowing and hypertrophic change. Extensive vascular calcifications. Diffuse demineralization. Alignment maintained. Moderate degenerative changes on single AP view of the left hip. XR/XR hip RT w [id number] IMPRESSION: 1. Multilevel lumbar spondylosis most notable at L2-L3. 2. Moderate degenerative changes bilateral sacroiliac joints. 3. Frwdtvua-nm-qsmwga degenerative changes in the right hip. This study was presented today, March 12, 2024, for interpretation. Stat results provided at this time as requested by referring provider. Electronically signed by: Carli Chan MD 03/12/2024 10:53 AM EDT
== END 2024-03-12 09:17 | disposition home or self-care (01) ==
LOC: HO.XRAY 09:16
PROVIDERS: PCP Internal Medicine; Visit Provider Student in an Organized Health Care Education/Training Program
DX: M46.1 Sacroiliitis, not elsewhere classified (principal); M16.11 Unilateral primary osteoarthritis, right hip
CPT/HCPCS: 72110; 73502

== ENCOUNTER → 2024-06-28 23:59 | Outpatient (BNV) | payer MEDICARE, OTHER, SELFPAY | PROVIDERS: PCP Internal Medicine; Visit Provider Internal Medicine Cardiovascular Disease | DX: I21.11 ST elevation (STEMI) myocardial infarction involving right coronary artery (principal) | CPT/HCPCS: 92941; 92973; 93454; 99152 ==